=== PATIENT | female | born 1995 | race Two or more races ===

== ENCOUNTER 2025-04-28 16:02 | Emergency (ER) | payer OTHER ==
[~2025-04-28] VITALS: Ht 165.1 cm; Wt 47.2 kg
[2025-04-28] MEDS ORDERED: 0.9 % SODIUM CHLORIDE 1,000 ML IV STA (18:09)
[2025-04-28 18:36] LABS: BASO % 0.5 % (0.1-1.2); EOS # 0.16 (0.04-0.54); EOS % 1.8 % (0.7-7.0); LYMPH # 1.34 (1.18-3.74); LYMPH % 14.7 % (19.3-53.1); MEAN PLATELET VOLUME 10.40 fl (9.4-12.4); MONO # 0.65 (0.24-0.82); MONO % 7.1 % (4.7-12.5); NEUT # 6.89 (1.56-6.13); NEUT % 75.7 % (34.0-71.1); RED CELL DISTRIBUTION WIDTH 15.0 % (11.6-14.4)
[2025-04-28 19:12] LABS: ALT/SGPT 18.0 U/L (12-78); AST/SGOT 5.0 U/L (15-37); BILIRUBIN TOTAL 0.45 mg/dL (0.3-1.2); BUN CREA RATIO 20.0 (7.0-25.0); CREATININE SERUM 0.61 mg/dL (0.55-1.02); GFR 115.16; GLOBULINA 3.3 G/DL (2.4-3.5); GLUCOSE FASTING 88.0 mg/dL (65-100); HCG QUANTITATIVE 2307.0 mUI/mL (1-3); OSMOLALITY SERUM 279.0 MOSM/KG (275-295)
== END 2025-04-28 20:18 | disposition home or self-care (01) ==
LOC: ER 16:02
DX: O20.9 Hemorrhage in early pregnancy, unspecified (principal); Z3A.01 Less than 8 weeks gestation of pregnancy

== ENCOUNTER 2025-04-30 12:35 | Emergency (ER) | payer OTHER ==
[~2025-04-30] VITALS: Ht 165.1 cm; Wt 46.3 kg
[2025-04-30] MEDS ORDERED: 0.9 % SODIUM CHLORIDE 1,000 ML IV STA (13:26)
[2025-04-30 13:49] LABS: BASO % 0.5 % (0.1-1.2); EOS # 0.14 (0.04-0.54); EOS % 1.3 % (0.7-7.0); LYMPH # 1.06 (1.18-3.74); LYMPH % 9.7 % (19.3-53.1); MEAN PLATELET VOLUME 10.30 fl (9.4-12.4); MONO # 0.79 (0.24-0.82); MONO % 7.2 % (4.7-12.5); NEUT # 8.89 (1.56-6.13); NEUT % 81.0 % (34.0-71.1); RED CELL DISTRIBUTION WIDTH 14.5 % (11.6-14.4)
== END 2025-04-30 15:23 | disposition home or self-care (01) ==
LOC: ER 13:11
PROVIDERS: Emergency Medicine
DX: O20.8 Other hemorrhage in early pregnancy (principal); Z3A.01 Less than 8 weeks gestation of pregnancy

== ENCOUNTER 2025-04-30 22:09 | Emergency (ER) | payer OTHER ==
[~2025-04-30] VITALS: Ht 165.1 cm; Wt 46.3 kg
[2025-05-01] MEDS ORDERED: 0.9 % SODIUM CHLORIDE 1,000 ML IV STA (03:45)
[2025-05-01] MEDS ORDERED: ONDANSETRON HCL 2 MG/ML VIAL IV STA (04:25)
[2025-05-01] MEDS ORDERED: KETOROLAC TROMETHAMINE 30 MG VIAL IV STA (04:25)
[2025-05-01] MEDS ORDERED: KETOROLAC TROMETHAMINE 30 MG VIAL ONE (04:26)
[2025-05-01] MEDS ORDERED: ONDANSETRON HCL 2 MG/ML VIAL ONE (04:26)
[2025-05-01 04:34] LABS: BASO % 0.6 % (0.1-1.2); EOS # 0.22 (0.04-0.54); EOS % 3.4 % (0.7-7.0); LYMPH # 1.17 (1.18-3.74); LYMPH % 18.2 % (19.3-53.1); MEAN PLATELET VOLUME 10.70 fl (9.4-12.4); MONO # 0.57 (0.24-0.82); MONO % 8.9 % (4.7-12.5); NEUT # 4.43 (1.56-6.13); NEUT % 68.7 % (34.0-71.1); RED CELL DISTRIBUTION WIDTH 14.6 % (11.6-14.4)
[2025-05-01 04:53] LABS: INR 1.1
[2025-05-01 05:13] LABS: BUN CREA RATIO 20.0 (7.0-25.0); CREATININE SERUM 0.6 mg/dL (0.55-1.02); GFR 117.38; GLUCOSE FASTING 92.0 mg/dL (65-100); HCG QUANTITATIVE 941.0 mUI/mL (1-3); OSMOLALITY SERUM 281.0 MOSM/KG (275-295)
== END 2025-05-01 06:38 | disposition home or self-care (01) ==
LOC: ER 22:09
DX: O20.8 Other hemorrhage in early pregnancy (principal); Z3A.01 Less than 8 weeks gestation of pregnancy; J06.9 Acute upper respiratory infection, unspecified